=== PATIENT | female | born 1955 | race Caucasian/White ===

== ENCOUNTER 2016-12-11 11:47 | Day surgery (SDC) | payer OTHER ==
[~2016-12-11] VITALS: Ht 167.6 cm; Wt 88.5 kg
[~2016-12-11 11:47] MED LIST: AMLO10TA2 PO; BUPIVACAINE/PF-EPI 0.25% 1:200K ONE; BUPR100T11 PO; CEFAZOLIN 1,000 MG ONE; DEXAMETHASONE 4 MG/ML, 1ML ONE; HYDR-3138 PO; HYDR-3144 PO; KETOROLAC 30 MG/1 ML ONE; METO-99 PO; ONDANSETRON 2MG/ML, 2ML ONE; OXYC-302 PO; PROPOFOL 10 MG/ML, 20ML ONE; PROPOFOL 10 MG/ML, 50ML ONE; SCOPOLAMINE PATCH, 1.5MG PATCH.TD72 TD ONE; SPIR25TA3 PO; THROMBIN 5,000 UNIT VIAL TP ONE
[2016-12-11 12:22] VITALS: BP 149/95
[2016-12-11] MEDS ORDERED: LACTATED RINGERS 1,000 ML IV SCH ×2 (12:22→16:47)
[2016-12-11] MEDS ORDERED: LIDOCAINE 1%, 2ML SQ PRN (12:30)
[2016-12-11] MEDS ORDERED: FENTANYL PF 250 MCG/5ML ONE (13:23)
[2016-12-11] MEDS ORDERED: MIDAZOLAM 1 MG/ML, 2ML ONE (13:23)
[2016-12-11] MEDS ORDERED: SCOPOLAMINE PATCH, 1.5MG PATCH.TD72 TD ONE (14:48)
[2016-12-11] MEDS ORDERED: NEOMY/POLYMYXIN B GU IRR. 1 ML IRRIG ONE (15:19)
[2016-12-11] MEDS ORDERED: ONDANSETRON 2MG/ML, 2ML IVPush PRN ×2 (16:00→17:00)
[2016-12-11] MEDS ORDERED: MIDAZOLAM 1 MG/ML, 2ML IV PRN (16:00)
[2016-12-11] MEDS ORDERED: LABETALOL 5MG/ML, 20ML IV PRN (16:00)
[2016-12-11] MEDS ORDERED: hydrALAzine 20 MG/ML, 1ML IV PRN (16:00)
[2016-12-11] MEDS ORDERED: ACETAMINOPHEN 325 MG TABLET PO PRN (16:00)
[2016-12-11] MEDS ORDERED: HYDROmorphone 1 MG/ML, 1ML IV PRN (16:00)
[2016-12-11] MEDS ORDERED: OXYcodone 5 MG/5 ML ORAL.SOL UDC PO PRN (16:00)
[2016-12-11] MEDS ORDERED: PROMETHAZINE 25 MG/ML, 1ML IV PRN (16:00)
[2016-12-11] MEDS ORDERED: HYDROcodone/APAP 7.5-325MG/15ML UDC PO PRN (16:00)
[2016-12-11] MEDS ORDERED: MEPERIDINE/PF 25MG/0.5ML IVPush PRN (16:00)
[2016-12-11] MEDS ORDERED: FLUORESCEIN SODIUM 500 MG/5 ML IV ONE (16:14)
[2016-12-11] MEDS ORDERED: HYDROmorphone 1 MG/ML, 1ML ONE (16:20)
[2016-12-11] MEDS: FENTANYL PF 100 MCG/2ML IV PRN ×2 (16:55→17:04)
[2016-12-11] MEDS ORDERED: OXYcodone/APAP 5/325MG TABLET PO PRN (17:00)
[2016-12-11] MEDS ORDERED: IBUPROFEN 600 MG TABLET PO PRN (17:00)
[2016-12-11] MEDS ORDERED: PROMETHAZINE 25 MG SUPP PR ONE (17:00)
[2016-12-11] MEDS ORDERED: HYDROcodone/APAP 7.5-325MG/15ML UDC ONE (17:01)
[2016-12-11] MEDS ORDERED: FENTANYL PF 100 MCG/2ML ONE (17:01)
[2016-12-11] MEDS ORDERED: HYDROmorphone 2 MG/ML, 1ML ONE (17:10)
[2016-12-11] MEDS ORDERED: PROMETHAZINE 25 MG/ML, 1ML ONE (17:11)
[2016-12-11] MEDS ORDERED: ONDANSETRON 2MG/ML, 2ML ONE (17:42)
== END 2016-12-11 20:37 | disposition home or self-care (01) ==
LOC: OUT 11:47
PROVIDERS: ATTEND Obstetrics & Gynecology Female Pelvic Medicine and Reconstructive Surgery
DX: N81.4 Uterovaginal prolapse, unspecified (principal); I10 Essential (primary) hypertension; M19.90 Unspecified osteoarthritis, unspecified site; D64.9 Anemia, unspecified; G43.909 Migraine, unspecified, not intractable, without status migrainosus; Z85.038 Personal history of other malignant neoplasm of large intestine; K21.9 Gastro-esophageal reflux disease without esophagitis; Z87.19 Personal history of other diseases of the digestive system; Z82.3 Family history of stroke; Z80.6 Family history of leukemia; Z72.89 Other problems related to lifestyle; M79.7 Fibromyalgia
CPT/HCPCS: 57260; 57282; J0690; J1100; J1170; J1885; J2250; J2405; J2550; J2704; J3010; J3490; J7120